=== PATIENT | male | born 1955 | race Caucasian/White ===

== ENCOUNTER 2016-10-01 08:14 | Day surgery (SDC) ==
[2016-09-24 10:05] LABS: MANUAL DIFF NEEDED? NO
[2016-09-24 10:09] LABS: EOS# 0.21 X1000 (0.0-0.7); EOS% 2.6 % (0.0-10.0); HEMATOCRIT 40.8 % (42.0-52.0); HEMOGLOBIN 13.6 g/dL (14.0-18.0); IMM GRAN# 0.02 X1000 (0.0-0.04); IMM GRAN% 0.2 % (0.0-0.5); LYMPH# 2.56 X1000 (1.2-3.4); LYMPH% 31.4 % (20.5-51.1); MCH 31.1 PG (27-31); MCHC 33.3 g/dL (33-37); MCV 93.2 FL (81-99); MONO# 1.19 X1000 (0.11-0.59); MONO% 14.6 % (1.7-9.3); MPV 8.5 FL (7.4-10.4); NEUT% 50.2 % (42.2-75.2); PLT 331 X1000 (130-400); RBC 4.38 XMIL (4.7-6.1)
[2016-09-24 10:31] LABS: CALCIUM 9.1 mg/dL (8.8-10.2); POTASSIUM 5.1 mmol/L (3.5-5.1)
--- NOTE | 2016-09-24 15:18 | EKG Report ---
Test Performed on : 09/24/2016 10:00:31 AM Test Reason : PAT Blood Pressure : / mmHG Vent. Rate : 087 BPM Atrial Rate : 087 BPM P-R Int : 124 ms QRS Dur : 102 ms QT Int : 354 ms P-R-T Axes : 018 -28 041 degrees QTc Int : 425 ms Sinus rhythm. with premature atrial complexes. Inferior infarct (cited on or before 07-OCT-2011) Abnormal ECG When compared with ECG of 07-OCT-2011 13:48, premature atrial complexes. are now present Questionable change in initial forces of Inferior leads Confirmed by Nicolas Fallon MD ([id number]) on 09/25/2016 9:21:30 PM
[2016-10-01] MEDS ORDERED: LR 1,000 ML ONE ×2 (08:27→11:44)
[2016-10-01] MEDS ORDERED: KEFZOL 1 GM/D5W 50 ML ONE (08:27)
[2016-10-01] MEDS ORDERED: VANCOMYCIN 1 GM/NS 250 ML ONE (08:41)
[2016-10-01] MEDS ORDERED: REGLAN ONE (09:07)
[2016-10-01] MEDS ORDERED: PEPCID ONE (09:07)
[2016-10-01] MEDS ORDERED: VALIUM ONE (09:07)
[2016-10-01] MEDS ORDERED: NAROPIN 0.5% ONE (09:25)
[2016-10-01] MEDS ORDERED: VERSED ONE (09:43)
[2016-10-01] MEDS ORDERED: FENTANYL ONE (11:31)
[2016-10-01] MEDS ORDERED: DIPRIVAN 1% ONE (11:31)
[2016-10-01] MEDS ORDERED: DILAUDID ONE (11:35)
[2016-10-01] MEDS ORDERED: ZOFRAN ONE (11:44)
[2016-10-01] MEDS ORDERED: XYLOCAINE-MPF 2% ONE (11:44)
[2016-10-01] MEDS ORDERED: OFIRMEV 1000 MG/ISOTONIC SOLN 100 ML ONE (11:44)
[2016-10-01] MEDS ORDERED: QUELICIN (DOSE) ONE (11:44)
[2016-10-01] MEDS ORDERED: NORCO-10 ONE (12:02)
--- NOTE | 2016-10-01 12:13 | OPERATIVE NOTE ---
PROCEDURE DATE: 10/01/2016 PREOPERATIVE DIAGNOSIS: Right rotator cuff tear and acromioclavicular joint arthritis. POSTOPERATIVE DIAGNOSES: 1. Right rotator cuff tear and acromioclavicular joint arthritis. 2. Chronic retracted irreparable rotator cuff tear. PROCEDURE: Arthroscopy of the right shoulder with subacromial decompression, distal clavicle resection, debridement of chronic irreparable rotator cuff tear. SURGEON: Fox Monaco MD DATA CONTROL CLERK SUPERVISOR: TRAVIS Gillette ANESTHESIA: General. IV FLUIDS: 1300 mL lactated Ringer's. ESTIMATED BLOOD LOSS: 25 mL. COMPLICATIONS: None. INDICATION: The patient is a pleasant 61-year-old male who is status post injury to his right shoulder. He has had pain and discomfort. MRI was obtained, revealed very large retracted rotator cuff tear. Recommendation to proceed arthroscopy with subacromial decompression, distal clavicle resection and attempted rotator cuff repair versus debridement if it is not amenable to repair. Risks and benefits of surgery explained including risks of anesthesia, , bleeding, infection, failure to relieve pain, postop stiffness, nerve injury, blood clots, and other imponderables. All questions were answered, the patient and family wished to proceed with surgery. DESCRIPTION OF PROCEDURE: The patient was taken to the operating room and placed supine on the operating table. Once adequate anesthesia was obtained, patient was placed in the left lateral decubitus position on a cisse bag with an axillary roll. The right shoulder subsequently prepped and draped in usual sterile fashion. Placed in 12 pounds longitudinal traction. A standard posterior incision was made with an 11 blade. A blunt tip trocar with overlying cannula was introduced. The arthroscope was introduced. Anterior portal was then made. Inspection of the glenohumeral joint revealed fraying in the anterior superior labrum, which was lightly debrided had an intact stable biceps tendon, had evidence of a chronic retracted rotator cuff with retraction medial to the labrum. No evidence of loose body in the inferior pouch. Attention was then turned to the subacromial space. Superior lateral incision made in standard fashion. A 90- degree ArthroCare wand was introduced to debride the undersurface of the acromion. A subacromial decompression was then conducted from the anterior lateral to anteromedial. After smoothly contouring the undersurface, adequate decompression was confirmed through the lateral portal using bony block technique. Attention turned to the AC joint. After initial debridement, there was evidence of AC joint arthritis. Distal clavicle resection then performed standard fashion with 1- 2 mm of the articular surface of the acromion. There appeared to be good resection confirmed through the anterior portal. Attention then turned to the bursal surface of the rotator cuff. Again, the remnant of the supraspinatus was retracted over the medial to the joint line. It appeared to be chronic, was not amenable to repair. Debridement of the rotator cuff was then conducted. After adequate debridement had been conducted, the arthroscope was removed. Nylon 3-0 was used to close the skin. Adaptic, sterile 4 x 4, ABD pad, and tape applied to the right shoulder, followed by shoulder immobilizer. All counts were correct. The patient tolerated the procedure well, was transferred to the recovery room in stable condition. [facility]
[2016-10-01 13:39] VITALS: BP 149/94
== END 2016-10-01 12:40 | disposition home or self-care (01) ==
LOC: OPS 08:14
PROVIDERS: ATTEND Orthopaedic Surgery Adult Reconstructive Orthopaedic Surgery
DX: M75.101 Unspecified rotator cuff tear or rupture of right shoulder, not specified as traumatic (principal); M19.011 Primary osteoarthritis, right shoulder; I10 Essential (primary) hypertension; I25.10 Atherosclerotic heart disease of native coronary artery without angina pectoris
CPT/HCPCS: 80048; 85025; 93005; 93010; J0131; J0330; J0690; J1170; J2250; J2405; J2795; J3010; J3370; J7120

== ENCOUNTER 2019-03-18 09:30 | Inpatient (IN) ==
[2019-03-18] MEDS ORDERED: NS 1,000 ML IV ONE ×2 (10:17→11:02)
[2019-03-18 11:09] LABS: BASO# 0.02 X1000 (0.0-0.2); BASO% 0.1 % (0.0-0.8); EOS# 0.01 X1000 (0.0-0.7); EOS% 0.1 % (0.0-10.0); HEMATOCRIT 42.3 % (42.0-52.0); HEMOGLOBIN 14.4 g/dL (14.0-18.0); IMM GRAN# 0.05 X1000 (0.0-0.04); IMM GRAN% 0.4 % (0.0-0.5); LYMPH# 1.18 X1000 (1.2-3.4); LYMPH% 8.3 % (20.5-51.1); MCH 29.9 PG (27-31); MCV 87.8 FL (81-99); MONO# 1.36 X1000 (0.11-0.59); MONO% 9.6 % (1.7-9.3); MPV 9.1 FL (7.4-10.4); NEUT% 81.5 % (42.2-75.2); PLT 613 X1000 (130-400); RBC 4.82 XMIL (4.7-6.1); RDW 13.6 % (11.5-14.5); WBC 14.22 X1000 (4.8-10.8)
[2019-03-18 11:24] LABS: INR 1.15; PROTIME 14.9 Seconds (11.0-16.0)
[2019-03-18 11:25] LABS: PTT 33.6 Seconds (22.3-41.8)
--- NOTE | 2019-03-18 11:33 | Diag Imaging Result Doc PS360 ---
EXAM: FLAT/UPRIGHT ABD/1 VIEW CHEST 03/18/2019 HISTORY: bowel obstruction TECHNIQUE: Flat and upright abdomen with AP chest COMMENT: There is stool present in the ascending colon. There is marked gaseous dilatation of multiple small bowel loops in the midabdomen. The stomach is not particularly distended. There is no evidence organomegaly or mass. The appearance of the chest has not changed significantly since 09/01/2018. IMPRESSION: Early small bowel obstruction. Constipation. Electronically signed by Luis Peace 03/18/2019 11:31 AM
[2019-03-18] MEDS ORDERED: ZOSYN 3.375 GM in NS 50 ML IV ONE (11:34)
[2019-03-18 11:58] LABS: ALB/GLOB RATIO 1.3; ALBUMIN 4.5 g/dL (3.5-5.0); CALCIUM 9.7 mg/dL (8.8-10.2); CREATININE 8.2 mg/dL (0.7-1.2); POTASSIUM 5.7 mmol/L (3.5-5.1); TOTAL BILIRUBIN 0.33 mg/dL (0.20-1.00); TOTAL PROTEIN 7.9 g/dL (6.3-8.3)
[2019-03-18 12:05] LABS: URINE SOURCE CATH
[2019-03-18 12:16] LABS: BILIRUBIN URINE SMALL (NEGATIVE); BLOOD URINE LARGE (NEGATIVE); COLOR ORANGE; GLUCOSE URINE NEGATIVE (NEGATIVE); KETONE URINE NEGATIVE (NEGATIVE); LEUKOCYTES URINE LARGE (NEGATIVE); NITRITE URINE NEGATIVE (NEGATIVE); PROTEIN URINE 100 mg/dL (NEGATIVE); TURBIDITY URINE TURBID (CLEAR); UR EPITHELIAL CELLS <10 /HPF (<10); URINE BACTERIA NEGATIVE /HPF; URINE RBC 20-40 /HPF (<10); URINE WBC TNTC /HPF (<10); UROBILINOGEN URINE NORMAL (NORMAL)
[2019-03-18 12:30] LABS: URINE CASTS NONE SEEN; URINE CRYSTALS NONE SEEN; URINE YEAST NONE SEEN
[2019-03-18 12:32] LABS: URINE SMALL ROUND CELLS RENAL PRESENT
[2019-03-18] MEDS ORDERED: ZOFRAN IV ONE (12:58)
--- NOTE | 2019-03-18 13:18 | Diag Imaging Result Doc PS360 ---
EXAM: CT ABDOMEN/PELVIS W/O CONTRAST HISTORY: abdomen distention TECHNIQUE: CT abdomen and pelvis without contrast COMPARISON: 08/22/2017 FINDINGS: There is thickening to the distal wall of the esophagus. The stomach is distended with fluid. There are multiple dilated small bowel loops. There is feculent material in the distal small bowel. Air and stool is found throughout the colon. Ileocolic anastomosis. No calcified gallstones or adjacent patient. Gallbladder is distended. No focal hepatic abnormality identified or small scattered pancreatic calcifications. No adjacent inflammation. No splenomegaly. Normal adrenal glands. There is a nonobstructing left lower pole renal stone. No hydronephrosis. Severe atherosclerosis. The distal aorta is dilated to 2.8 cm. There is a Regan catheter in the urinary bladder. There are bilateral fat filled inguinal hernias. The prostate has been removed. No pelvic mass. IMPRESSION: 1.Prominent ileus versus distal obstruction with feculent material the distal small bowel 2.Possible esophagitis 3.Chronic pancreatitis 4.Nonobstructing left renal stone 5.Severe atherosclerosis 6.Prostatectomy 7.Fat filled inguinal hernias This exam was performed using automated exposure control, adjustment of mA or kV according to patient size, and/or use of iterative reconstruction technique. Electronically signed by Daniel Yeh 03/18/2019 1:16 PM
--- NOTE | 2019-03-18 14:17 | EKG Report ---
Test Performed on : 03/18/2019 2:11:09 PM Test Reason : elevated troponin Blood Pressure : / mmHG Vent. Rate : 095 BPM Atrial Rate : 095 BPM P-R Int : 122 ms QRS Dur : 110 ms QT Int : 380 ms P-R-T Axes : 020 -66 073 degrees QTc Int : 477 ms Normal sinus rhythm. Left axis deviation Inferior infarct (cited on or before 23-AUG-2017) Abnormal ECG When compared with ECG of 24-AUG-2017 11:11, Nonspecific T wave abnormality now evident in Lateral leads Unconfirmed Result
--- NOTE | 2019-03-18 14:25 | Diag Imaging Result Doc PS360 ---
EXAM: CHEST/ABD TUBE PLACEMENT HISTORY: confirm ng placement TECHNIQUE: Chest abdomen single view COMPARISON: 11:28 AM FINDINGS: A nasogastric tube has been placed since the prior exam. This overlies the esophagus and upper stomach and appears to be in good position. Electronically signed by Daniel Yeh 03/18/2019 2:23 PM
[2019-03-18] MEDS ORDERED: SODIUM CHLORIDE 0.9% INJ SCH (16:48)
[2019-03-18] MEDS ORDERED: NS 1,000 ML IV SCH (16:48)
[2019-03-18] MEDS ORDERED: ZOFRAN IV PRN (16:48)
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
[2019-03-18] MEDS: NS 1,000 ML IV SCH ×2 (18:10→21:42)
[2019-03-18] MEDS: MORPHINE IV PRN (18:10)
[2019-03-18] MEDS: PROTONIX IV SCH (18:10)
[2019-03-18] MEDS ORDERED: BLISTEX MEDICATED BERRY LIP BALM TOP PRN (18:22)
--- NOTE | 2019-03-18 18:31 | CONSULTATION ---
DATE OF CONSULTATION: 03/18/2019 ATTENDING AND REFERRING PHYSICIAN: Dr. Maravilla. HISTORY OF PRESENT ILLNESS: This 63-year-old male has a history of prostate cancer. He underwent laparoscopic robot-assisted radical retropubic prostatectomy and bilateral pelvic lymph node dissection in 2013. He had some stress incontinence and is 1 week status post placement of an Advance male proximal bulbar urethral sling. The patient states he has not felt well since the surgery. He states he had some nausea and could not keep fluids or food on his stomach. He has not voided very much since the surgery, and had to have a Regan catheter placed 2 days ago. He states that relieved his bladder pain, but he continued with abdominal distention and nausea. He states his stomach became more protuberant since yesterday. The patient was seen in the emergency room where a CT of the abdomen revealed bowel obstruction, with the Regan catheter in good position in the bladder. PAST MEDICAL HISTORY: As noted in the HPI with: 1. Congestive heart failure. 2. Coronary artery disease. 3. Gastric ulcer. 4. Elevated cholesterol. 5. Peripheral vascular disease. 6. Allergic sinusitis. HOME MEDICATIONS: Include: 1. Bupropion. 2. Klonopin. 3. Diltiazem. 4. Livalo. 5. Losartan. 6. Plavix. 7. Omeprazole. PAST SURGICAL HISTORY: 1. Coronary artery stenting. 2. Partial colectomy. 3. Angioplasty. 4. Cataract excision. 5. As noted in the HPI. SOCIAL HISTORY: He smokes cigarettes and has social use of alcohol. REVIEW OF SYSTEMS: He is allergic to erythromycin and penicillin. He states that he is usually in good health. He states there are certain blood pressure medicines that cause his creatinine to elevate. He does not remember the name. He states he really has not had any urine output other than when the catheter was placed several days ago. He denies any chest pains or pulmonary problems. PHYSICAL EXAMINATION: General: A normally developed, well nourished, age apparent white male in mild distress with an NG tube in place. HEENT: Normal for age. Lungs: Clear. Cardiovascular: Regular rate and rhythm. Abdomen: Protuberant, tympanic. No bowel sounds noted. Diffuse tenderness with palpation, but no guarding or rebound. : Normal male. Both testes are down. Regan catheter in place with minimal urine in the drainage tube. There is no urine in the drainage bag. Extremities: No clubbing, cyanosis, or edema. Neuro: No focal deficits. LABORATORY EVALUATION: He has a white count of 14.22, hemoglobin 14.4, hematocrit of 42.3, and platelets are 613,000. Serum electrolytes have a sodium of 132, potassium 5.7, chloride 75, bicarb 25, BUN 88, creatinine 8.2. CT scan is as noted in the HPI. IMPRESSION: 1. Bowel obstruction. 2. Dehydration. 3. Acute renal failure. 4. One week postop placement of a midurethral stop sling with indwelling Regan catheter decompressing the bladder. 5. History of prostate cancer. RECOMMEND: 1. As has been done, consult General Surgery and Nephrology. 2. Keep Regan catheter in place. 3. Check urine cultures. Thank you for this consultation. cc: Kenji Gonzales MD
--- NOTE | 2019-03-18 18:50 | HISTORY AND PHYSICAL ---
CHIEF COMPLAINT: Abdominal pain, nausea, vomiting, and anuria. HISTORY OF PRESENT ILLNESS: This is a 63-year-old male with a history of CAD, history of multiple surgeries. He had a bladder sling operation apparently about on 03/11/[address] Dacosta. He had some issues post procedure with urinary retention. His states he had about 600 mL retained and had the catheter replaced. Over the last since he says which has been a week out he has not had poor p.o. intake. He has had nausea and vomiting. He reports no bowel movement in about 7 days. He came in for evaluation and was found to have a small bowel obstruction. He was in acute renal failure, and he is going to be admitted for multiple issues. He does have a history of pancreatitis,. but he is not currently drinking any alcohol . PAST MEDICAL HISTORY: 1. CAD status post PCI. Now PCI reportedly up to 6 stents placed, but the last one I think was in 2012. 2. Peptic ulcer disease. 3. Osteoarthritis.. 4. COPD . 5. Hypertension. 6. Prostate cancer status post prostatectomy, but that was remote. 7. Tobacco abuse. Unclear if he has true heart failure. PAST SURGICAL HISTORY: 1. PCI. 2. Prostatectomy. 3. Rotator cuff repair. 4. He has had colon surgery related to polyps. 5. Cataract surgery. 6. Left subclavian stent. SOCIAL HISTORY: He smokes a little bit, less than around 2 or 3 cigarettes a day or half a pack a day. No drinking at least since last admission. FAMILY HISTORY: Mother had colon cancer apparently at 36, and father had pancreatic cancer. REVIEW OF SYSTEMS: No weight loss reported, but he has had about looks like here at least a 10 pound weight loss in the last 8 days. No chest pain. No shortness of breath. Otherwise negative times a 10 point review. PHYSICAL EXAMINATION: VITAL SIGNS: Blood pressure is 116/75, heart rate 91, respiratory rate 17, temperature is 97.5 degrees, O2 sat is 98% on 2 L. GENERAL: A well-developed male in pretty significant distress who came in with nausea, vomiting. HEENT: Pupils are equal, round and reactive to light. Extraocular movements were intact. He had dry mucous membranes. NECK: Supple. CARDIOVASCULAR: Tachycardic but regular. PULMONARY: Decreased at the bases but no wheezing or rales. GASTROINTESTINAL: Soft, protuberant, tender, but no rebound, no guarding. Bowel sounds were not present. NEUROLOGICAL: Nonfocal exam. MUSCULOSKELETAL: 4-5/4 extremities. LABORATORY DATA: White count is 14, hemoglobin and hematocrit 14 and 42, platelets 613,000, potassium 5.7, BUN and creatinine are 88 and 8.2, with a troponin of 0.664. White blood cells too numerous to count. He does have some renal tubules present I believe. ASSESSMENT: A 63-year-old male presenting with a small bowel obstruction and essentially an acute kidney injury, dehydration. 1. Small-bowel obstruction. We will continue NG tube. It is unclear if this is also or perhaps an ileus, we have consulted Dr. Mac. He has got an NG in place with persistent output. We will repeat his plain films tomorrow and follow. This just may be a post op ileus and will need some time to resolve, but he has had numerous surgeries in the past which will predispose him to small bowel obstruction. 2. Acute kidney injury. We will continue IV fluids. Check urine electrolytes. Check renal ultrasound. Dr. Agee has been consulted, hopefully this is all reactive so we will continue to follow. 3. Hyperkalemia likely related to small bowel renal failure. 4. History of chronic pancreatitis. We are aware. 5. Decreased urine output, urinary retention currently though Regan is in place and there is no urine output. It does not look like there is any evidence of obstructive uropathy. I will let Dr. Dacosta know he is here and follow along, but it does not look like there is anything with obstruction at this point. 6. Elevated troponin which was actually reactive. His EKG to me does not show anything acute. We will get another level. We will get an echo. If persistently elevated we may consider Cardiology consult. His EKG is nonspecific at this time. DISPOSITION: Pending clinical status. cc: Dr. Elie Maravilla MD
--- NOTE | 2019-03-18 19:36 | GENERAL SURGERY CONSULTATION ---
DATE: 03/18/2019 HISTORY OF PRESENT ILLNESS: A 63-year-old gentleman patient of Dr. Lake who about a 1-2 weeks ago had a midurethral sling. He has COPD, Hypertension, and peripheral vascular disease. Since that time he has not felt very well. He has had some abdominal distention, lack of flatus and bowel movements, had urinary retention. He has had a Regan catheter replaced and has been in place really pretty much since then. He has had persistent nausea and vomiting, worsening over the last couple of days. He came to the ER where he was found to have acute renal failure with creatinine up to 8.2. His potassium was elevated. His troponins were elevated, and his white count was high. He appeared very dehydrated. CT scan was concerning for bowel obstruction. SURGICAL HISTORY: He has had a prostatectomy. He has had a right colectomy presumably for a benign polyp laparoscopically, left subclavian stent. No coronary stents. MEDICAL HISTORY: Prostate cancer, colon polyp, tobacco use, COPD, hypertension, peptic ulcer disease and osteoarthritis. SOCIAL HISTORY: He does smoke, less now than used to, has not had anything to drink since his last admission. FAMILY HISTORY: Reviewed and noncontributory. REVIEW OF SYSTEMS: Ten-point review os systems negative other than HPI PHYSICAL EXAMINATION: Vital signs: He is afebrile. Heart rate was initially elevated and was hypotensive but is better now. Pulse 91, blood pressure 116/75, oxygen saturation is 98% on 2 L. General: He is a chronically ill-appearing gentleman in no acute distress. HEENT: He has a nasogastric tube in place. No cervical mass. Cardiovascular: Normal rate. Pulmonary: No increased work of breathing. Abdomen: Soft, nontender, nondistended. Integument: Warm and dry. Genitourinary: Regan catheter is noted to be in place with no urine output. Peripheral vascular: No lower extremity edema. Psychiatric: Appropriate affect. Neurologic: No gross deficits. LABORATORY DATA: White count is 14, hematocrit 42, platelets 613,000, creatinine is 8.2, potassium 5.7, glucose 166. Troponin is 0.615. Urinalysis does show large leukocytes. IMAGING: I reviewed a CT scan, shows no free air, no free fluid. There is an ileus versus distal bowel obstruction, and fat containing inguinal hernia is not a source of obstruction. He does have a history of chronic pancreatitis. ASSESSMENT AND PLAN: A 63-year-old gentleman with ileus versus bowel obstruction. Apparently has passed some gas. NG tube is in place. He is putting out old gastric-appearing contents, and a Regan catheter had been placed. Dr. Agee of the urology service has been engaged. Would recommend continued hydration, correction of electrolyte abnormalities and NG tube decompression. We will follow along but would be high risk for an abdominal operation right now. I do not feel as though this is indicated. Most likely this is more of an ileus type picture, but we will follow. cc: Gale Mac MD MTDD
[2019-03-18 23:11] LABS: UR PROT RANDOM 151.5 mg/dL
[2019-03-18] MEDS ORDERED: CHLORASEPTIC SPRAY MT PRN (23:28)
[2019-03-19] MEDS: MORPHINE IV PRN ×3 (00:01→11:18)
[2019-03-19] MEDS: NS 1,000 ML IV SCH ×3 (04:49→18:10)
--- NOTE | 2019-03-19 07:42 | EKG Report ---
Test Performed on : 03/19/2019 06:25:53 AM Test Reason : cp Blood Pressure : / mmHG Vent. Rate : 086 BPM Atrial Rate : 086 BPM P-R Int : 134 ms QRS Dur : 116 ms QT Int : 384 ms P-R-T Axes : 037 -43 066 degrees QTc Int : 459 ms Normal sinus rhythm. Left axis deviation Inferior infarct (cited on or before 23-AUG-2017) T wave abnormality, consider anterior ischemia Abnormal ECG When compared with ECG of 18-MAR-2019 14:11, (Unconfirmed) T wave inversion now evident in Anterior leads Nonspecific T wave abnormality, improved in Lateral leads Confirmed by Alberta Riley MD ([id number]) on 03/19/2019 4:28:32 PM
[2019-03-19 08:44] LABS: BASO# 0.01 X1000 (0.0-0.2); BASO% 0.1 % (0.0-0.8); EOS# 0.01 X1000 (0.0-0.7); EOS% 0.1 % (0.0-10.0); HEMATOCRIT 36.1 % (42.0-52.0); HEMOGLOBIN 12.1 g/dL (14.0-18.0); IMM GRAN# 0.04 X1000 (0.0-0.04); IMM GRAN% 0.3 % (0.0-0.5); LYMPH# 1.34 X1000 (1.2-3.4); LYMPH% 10.6 % (20.5-51.1); MCH 30.5 PG (27-31); MCHC 33.5 g/dL (33-37); MCV 90.9 FL (81-99); MONO% 11.8 % (1.7-9.3); MPV 9.2 FL (7.4-10.4); NEUT% 77.1 % (42.2-75.2); PLT 441 X1000 (130-400); RBC 3.97 XMIL (4.7-6.1); RDW 13.6 % (11.5-14.5)
[2019-03-19 09:07] LABS: ALBUMIN 3.1 g/dL (3.5-5.0); CALCIUM 8.2 mg/dL (8.8-10.2); CREATININE 7.3 mg/dL (0.7-1.2); MAGNESIUM 2.8 mg/dL (1.5-2.7); POTASSIUM 3.5 mmol/L (3.5-5.1); TOTAL BILIRUBIN 0.22 mg/dL (0.20-1.00); TOTAL PROTEIN 6.3 g/dL (6.3-8.3)
--- NOTE | 2019-03-19 11:17 | GENERAL SURGERY PROGRESS NOTE ---
DATE: 03/19/2019 SUBJECTIVE: He says he is passing gas. His abdomen remains distended. NG tube is in place with thick, feculent-appearing output, but not much volume. OBJECTIVE: Vital signs: Hemodynamically stable. General: He is alert. Cardiovascular: Normal rate. HEENT: NG tube is in place. Abdomen: Distended, but soft, nontender. Genitourinary: He has a Regan in place with increasing urine output. DIAGNOSTIC STUDIES: Creatinine is down to 7.3. His potassium is 3.5. White count is 12. ASSESSMENT AND PLAN: A 63-year-old gentleman status post mid urethral sling. He presents now with apparent ileus versus bowel obstruction. I do think this is more of an ileus-type picture. He is distended. I would continue hydration, electrolyte correction, and NG tube decompression. Dr. Benitez will follow-up over the weekend, but suspect over the next 24-48 hours, we can get the NG tube out. It is okay for him to have ice chips and sips, but I have encouraged him to continue the low volume. cc: Gale Mac MD [facility]
--- NOTE | 2019-03-19 13:07 | Diag Imaging Result Doc PS360 ---
ABDOMEN FLAT/UPRIGHT - 03/19/2019 INDICATION: sbo COMPARISON: 03/18/2019 FINDINGS: Stable nasogastric tube in the stomach. Stable extensive gas dilated loops of small bowel indicating a distal small bowel obstruction. These measure up to 4.2 cm. Very little gas or stool in the colon. No free air. IMPRESSION: Distal mechanical small bowel obstruction. Electronically signed by Russ Franco 03/19/2019 1:05 PM
--- NOTE | 2019-03-19 13:07 | Diag Imaging Result Doc PS360 ---
US RENAL 2 (RETROPER) COMPLETE - 03/19/2019 INDICATION: torito TECHNIQUE: COMPARISON: CT from yesterday FINDINGS: The kidneys and urinary bladder are normal. Urinary bladder is mostly collapsed. There is clear urine in the urinary bladder. The right kidney measures 9.1 x 4.2 x 2.9 cm. The left kidney measures 10.1 x 4.8 x 5.5 cm. IMPRESSION: Negative exam. Electronically signed by Russ Franco 03/19/2019 1:04 PM
--- NOTE | 2019-03-19 14:41 | NEPHROLOGY CONSULTATION ---
DATE: 03/19/2019 REASON FOR CONSULTATION: Acute kidney injury. HISTORY OF PRESENT ILLNESS: Mr. Rg is a 63-year-old man with a history of bladder sling procedure. He has had low urine output, nausea, anorexia, vomiting,minimal bowel movements. He was re-evaluated and found to have an ileus and is admitted to the hospital. In that context he had acute kidney injury with BUN 88 creatinine 8.2. HOME MEDICATIONS: Include losartan. PAST MEDICAL HISTORY: Hypertension, hyperlipidemia, COPD, coronary artery disease, peptic ulcer disease, history of prostate cancer. ALLERGIES: Multiple, as listed. SOCIAL HISTORY: He is . Lives with his who is currently at the bedside. Ongoing tobacco use. FAMILY HISTORY: Otherwise noncontributory. REVIEW OF SYSTEMS: Otherwise noncontributory. PHYSICAL EXAMINATION: Vital Signs: Blood pressure 109/83, heart rate 101, respirations 17, afebrile. General: No acute distress. Skin: Warm and dry. Neck: Neck veins are not distended. HEENT: Oropharynx is clear. Normal tongue. Normal teeth. Cardiovascular: PMI nondisplaced. Regular rate and rhythm without murmurs, rubs, or gallops. Lungs: Have equal breath sounds. No crackles or wheezes. Abdomen: Soft, nontender. Bowel sounds present. No organomegaly, masses, bruits. Extremities: Have no edema, clubbing or cyanosis. IMPRESSION: 1. Acute kidney injury. Likely intravascular volume depletion in the context of poor glomerular autoregulation secondary to angiotensin receptor mychal therapy. He certainly has an abnormal urine consistent with an infection though his urine culture has been negative thus far. 2. Imaging disclosed kidneys that are marginally small with no evidence of obstruction and his bladder was collapsed. 3. He has increased urine output with volume resuscitation. 4. He has no acute indications for dialysis and his potassium is in target, bicarbonate in target. No volume overload. 5. I agree with the care as it is being delivered. No changes at this time. We will follow with you. cc: Elmer Agee MD
[2019-03-19] MEDS ORDERED: FLEET MINERAL OIL ENEMA PR ONE (14:48)
[2019-03-19] MEDS ORDERED: ATIVAN IV PRN (14:50)
--- NOTE | 2019-03-19 15:12 | PROGRESS NOTE ---
DATE: 03/19/2019 SUBJECTIVE: Patient has no major complaints. OBJECTIVE: Vital Signs: Blood pressure is 109/83, heart rate 101, respiratory rate 17, temperature was 97.9 degrees, 92% on 3 L. Cardiovascular: Regular rate and rhythm. Pulmonary: Bilateral breath sounds clear to auscultation. Gastrointestinal: Soft, nontender, nondistended. Bowel sounds are positive. DIAGNOSTIC STUDIES: White count 12, hemoglobin 12, hematocrit 36, platelets 441. BUN 98, creatinine 7.3. Magnesium of 2.8. His most recent troponin was 0.615, which was a decrease. CK was normal. Echo is pending. PROBLEM LIST: 1. Small bowel obstruction versus ileus. He still has decent output from the NG tube, so I will keep that in place. We will continue some bowel treatments because I think he is constipated, despite the fact that he says he has not eaten and things of that nature, so we will work on bowel stimulation from below. 2. Acute kidney injury, likely due to dehydration, which may have progressed to acute tubular necrosis. His renal ultrasound is unremarkable. His urine electrolytes are consistent with prerenal causes most likely. His urine sodium is 22, which I think that makes his FENa calculate to less than 1%. 3. Chronic pancreatitis. He says his pain is not under control so we will change his pain medications and follow. 4. Coronary artery disease. He does have some mild elevation in his troponins. I am waiting on a repeat echocardiogram. I think this is secondary to his renal failure. There are no ischemic changes. I may get a Cardiology opinion. 5. Recent bladder sling. He seems to be doing okay from that standpoint. There is no evidence of obstructive uropathy. We will continue fluids and follow closely. cc: Weston Maravilla MD [facility]
[2019-03-19] MEDS: DILAUDID IV PRN ×2 (16:51→22:03)
[2019-03-19] MEDS: PROTONIX IV SCH (17:05)
[2019-03-19] MEDS: DULCOLAX PR SCH (20:03)
[2019-03-20] MEDS: NS 1,000 ML IV SCH ×3 (01:03→12:35)
[2019-03-20] MEDS: DILAUDID IV PRN ×3 (03:09→19:04)
[2019-03-20 07:10] LABS: BASO# 0.01 X1000 (0.0-0.2); BASO% 0.1 % (0.0-0.8); EOS# 0.02 X1000 (0.0-0.7); EOS% 0.2 % (0.0-10.0); HEMATOCRIT 37.9 % (42.0-52.0); HEMOGLOBIN 12.1 g/dL (14.0-18.0); IMM GRAN# 0.06 X1000 (0.0-0.04); IMM GRAN% 0.5 % (0.0-0.5); LYMPH# 1.31 X1000 (1.2-3.4); LYMPH% 10.4 % (20.5-51.1); MCHC 31.9 g/dL (33-37); MCV 93.8 FL (81-99); MONO# 1.74 X1000 (0.11-0.59); MONO% 13.8 % (1.7-9.3); MPV 9.2 FL (7.4-10.4); NEUT# 9.45 X1000 (1.4-6.5); PLT 437 X1000 (130-400); RBC 4.04 XMIL (4.7-6.1); RDW 13.5 % (11.5-14.5); WBC 12.59 X1000 (4.8-10.8)
[2019-03-20 07:35] LABS: CALCIUM 8.4 mg/dL (8.8-10.2); CREATININE 4.3 mg/dL (0.7-1.2); MAGNESIUM 2.6 mg/dL (1.5-2.7); PHOSPHORUS 4.9 mg/dL (2.7-4.5); POTASSIUM 3.6 mmol/L (3.5-5.1)
[2019-03-20] MEDS: DULCOLAX PR SCH ×2 (09:20→20:08)
[2019-03-20] MEDS: WELLBUTRIN XL PO SCH (11:25)
[2019-03-20] MEDS: KLONOPIN PO SCH ×2 (11:25→20:08)
--- NOTE | 2019-03-20 14:32 | GENERAL SURGERY PROGRESS NOTE ---
DATE: 03/20/2019 SUBJECTIVE: The patient says he feels better. He denies significant abdominal pain. His abdominal distention has improved according to him and his . No nausea or vomiting. He has passed gas several times. He is eating ice continuously. OBJECTIVE: Afebrile. Pulse 90s to low 100s last night and this morning. Blood pressure is stable. NG tube output 900 mL over the last 24 hours. It is blood-tinged. GI: Soft, somewhat protuberant and tympanic but minimally tender and he does have bowel sounds. LABORATORY: White blood cell count 12.5, hemoglobin 12, hematocrit 37.9. Electrolytes reviewed and are unremarkable. The BUN and creatinine are improving at 87 and 4.3 respectively. Phosphorus, magnesium, and potassium are all unremarkable. ASSESSMENT AND PLAN: 63-year-old male with apparent ileus, dehydration and acute kidney injury, status post urethral sling a week and a half ago. I do not think he has a mechanical obstruction. I am going to clamp his NG tube this morning and give him a trial for 6 hours. If he tolerates this, will remove the NG tube. I think he likely has gastritis. He is getting Protonix. His hemoglobin and hematocrit are minimally changed since admission. cc: Adi Benitez MD
[2019-03-20] MEDS ORDERED: NS 1,000 ML IV SCH (15:05)
[2019-03-20] MEDS ORDERED: ATIVAN IV PRN (15:19)
[2019-03-20] MEDS: CLINIMIX E 4.25%-5% SOLUTION 1,000 ML IV SCH (15:46)
--- NOTE | 2019-03-20 15:46 | NEPHROLOGY PROGRESS NOTE ---
DATE: 03/20/2019 SUBJECTIVE: He has his NG tube clamped and is on clear liquids. He is hungry and asking for food. No shortness of breath. OBJECTIVE: Vital Signs: Blood pressure 121/79, heart rate 98, respirations 17, afebrile. General: No acute distress. Skin: Warm and dry. Neck: Neck veins are not appreciated. Heart: Regular. Lungs: Equal. No crackles. Abdomen: Soft, nontender. Diminished bowel sounds. Extremities: With no edema, clubbing or cyanosis. IMPRESSION: Acute kidney injury. Progressive improvement with good urine output and falling creatinine. Electrolytes/acid base/volume status in target. Continue IV fluids. No changes. cc: Elmer Agee MD
[2019-03-20] MEDS: PROTONIX IV SCH (15:51)
--- NOTE | 2019-03-20 16:30 | PROGRESS NOTE ---
DATE: 03/20/2019 SUBJECTIVE: Patient has no major complaints. OBJECTIVE: Blood pressure 121/79, heart rate of 98, respiratory rate of 17, temperature 98.5 degrees, 96% on 2 L.Cardiovascular: Regular rate and rhythm. Pulmonary: Bilateral breath sounds. Clear to auscultation. GI: Was soft, distended. No bowel sounds. LABORATORY DATA: White count is 12, hemoglobin and hematocrit 12 and 37, platelets 437,000, creatinine is down to 4.3 which is a big drop, phos is 4.9 which is high. PROBLEM LIST: 1. Small bowel obstruction versus ileus. He has had over 2 L out since this morning so I really do not think we are going to be able take the NG out. I realize this may not be a true small bowel obstruction but his residuals is very high. The patient is upset because he is not eating and he thinks we are starving him to because he is not eating, he is not constipated because he is not eating and therefore that is why he would not be constipated. He did have a stool throughout the bowel on his CAT scan. It looks like he may have had 1 bowel movement yesterday but he says he only just passes the suppositories. Anyways he is just unpleasant and just unhappy about the situation which is understandable. 2. Acute kidney injury. He does seem to be prerenal. Will continue IV fluids. I switched him to Clinimix since he is wanting to eat. 3. Chronic pancreatitis. We will increase his pain medicine. He says they are still not working. His oral medicines I am not really sure how well they are being absorbed since he put over 2 L in there but he is happy that Dr. Benitez has restarted those. 4. Elevated troponin in the setting of acute renal failure stable. I am still waiting on his repeat films. DISPOSITION: Pending his clinical status. I think he is probably close to being able to go on the floor. cc: Weston Maravilla MD
[2019-03-21] MEDS: DILAUDID IV PRN ×5 (00:16→20:42)
[2019-03-21] MEDS: CLINIMIX E 4.25%-5% SOLUTION 1,000 ML IV SCH ×3 (00:35→20:42)
[2019-03-21 07:11] LABS: BASO# 0.03 X1000 (0.0-0.2); BASO% 0.2 % (0.0-0.8); EOS# 0.05 X1000 (0.0-0.7); EOS% 0.4 % (0.0-10.0); HEMOGLOBIN 12.1 g/dL (14.0-18.0); IMM GRAN# 0.08 X1000 (0.0-0.04); IMM GRAN% 0.6 % (0.0-0.5); LYMPH# 1.41 X1000 (1.2-3.4); MCHC 31.8 g/dL (33-37); MCV 94.3 FL (81-99); MONO# 1.46 X1000 (0.11-0.59); MONO% 11.4 % (1.7-9.3); MPV 8.9 FL (7.4-10.4); NEUT# 9.77 X1000 (1.4-6.5); NEUT% 76.4 % (42.2-75.2); PLT 399 X1000 (130-400); RBC 4.03 XMIL (4.7-6.1); RDW 13.2 % (11.5-14.5)
[2019-03-21 07:29] LABS: CALCIUM 8.8 mg/dL (8.8-10.2); CREATININE 1.9 mg/dL (0.7-1.2); MAGNESIUM 2.1 mg/dL (1.5-2.7)
[2019-03-21] MEDS: KLONOPIN PO SCH ×2 (09:05→20:33)
[2019-03-21] MEDS: WELLBUTRIN XL PO SCH (09:05)
[2019-03-21] MEDS: DULCOLAX PR SCH ×2 (09:05→20:34)
--- NOTE | 2019-03-21 09:13 | Diag Imaging Result Doc PS360 ---
ABDOMEN FLAT/UPRIGHT - 03/21/2019 INDICATION: pain COMPARISON: 03/19/2019 FINDINGS: The nasogastric tube is no longer present. There are stable severely gaseous distended loops of small bowel diffusely throughout the abdomen compatible with high-grade distal small bowel obstruction. IMPRESSION: Nasogastric tube no longer present. Severe small bowel obstruction. Electronically signed by Russ Franco 03/21/2019 9:11 AM
[2019-03-21] MEDS ORDERED: FLEET ENEMA PR ONE (09:45)
--- NOTE | 2019-03-21 10:14 | GENERAL SURGERY PROGRESS NOTE ---
DATE: 03/21/2019 SUBJECTIVE: The patient denies abdominal pain or nausea. He reports some passage of flatus. His NG tube was removed yesterday after a low residual. OBJECTIVE: Vital signs: He is afebrile. Vital signs are stable. Urine output a little over 2 L. He also had 2 recorded bowel movements over the last 24 hours. General: He is awake, alert, oriented x3. No acute distress. Respiratory: No work of breathing. GI: Soft, moderately distended and tympanic, but nontender, and he does have bowel sounds. LABORATORY: White blood cell count 12.8, hemoglobin 12.1, hematocrit 38. Electrolytes reviewed and notable for improving BUN and creatinine, now down to 62 and 1.9. IMAGING: An abdominal x-ray today shows severely gaseous distended loops of small bowel diffusely throughout the abdomen, compatible with small bowel obstruction. ASSESSMENT AND PLAN: A 63-year-old male with apparent small bowel obstruction versus ileus after urethral sling procedure over a week ago. Symptomatically, he reports feeling better. He denies significant abdominal pain, nausea, or vomiting. He reports flatus and bowel movements and tolerating clear liquids yesterday. I will cautiously advance him to a full liquid diet but also add mineral oil and a Fleet's enema to try to encourage more bowel function. cc: Adi Benitez MD
[2019-03-21] MEDS: MILK OF MAGNESIA PO SCH ×2 (12:39→20:34)
[2019-03-21] MEDS ORDERED: NORCO-7.5 PO PRN (14:54)
[2019-03-21] MEDS ORDERED: RELISTOR SUBQ ONE (14:56)
--- NOTE | 2019-03-21 15:14 | PROGRESS NOTE ---
DATE: 03/21/2019 SUBJECTIVE: Patient has no major complaints. OBJECTIVE: Blood pressure is 144/93, heart rate of 101, respiratory rate of 18, temperature was 98.6 degrees.Cardiovascular: Regular rate and rhythm. Pulmonary: Bilateral breath sounds. Clear to auscultation. GI: Was soft, nontender, nondistended. Bowel sounds are positive. Extremities: No clubbing or cyanosis. Lymphatic: No peripheral edema. Neurological: Nonfocal. LABORATORY DATA: White count is 12, hemoglobin and hematocrit 12 and 38, platelets of 399,000. Creatinine is down to 1.9 with a BUN of 62. PROBLEM LIST: 1. Small bowel obstruction versus ileus. Nasogastric is out. He seems obviously in better spirits now that he can he eat. I agree with Dr. Benitez he needs to be I think flushed out before we necessarily let him go. He is really chafing at the bit to go home but I think he was given an enema, may be a benefit give him some Relistor, maybe some Movantik. 2. Acute kidney injury that seems to be better. We will continue IV medications and follow. 3. I think if he is stabilizing anticipate discharge soon possibly within the next 1 to 2 days. Encourage ambulation and see how he does. 4. Hypertension. We will resume his regular medicines and follow. cc: Weston Maravilla MD
[2019-03-21] MEDS: CARDIZEM CD PO SCH (15:40)
[2019-03-21] MEDS: APRESOLINE PO SCH (17:15)
[2019-03-21] MEDS: PRILOSEC PO SCH (20:33)
[2019-03-22] MEDS: DILAUDID IV PRN ×3 (01:47→06:38)
[2019-03-22] MEDS: CLINIMIX E 4.25%-5% SOLUTION 1,000 ML IV SCH (06:29)
[2019-03-22] MEDS: PRILOSEC PO SCH (06:29)
[2019-03-22] MEDS: APRESOLINE PO SCH ×2 (08:25→12:32)
[2019-03-22] MEDS: WELLBUTRIN XL PO SCH (08:25)
[2019-03-22] MEDS: KLONOPIN PO SCH (08:25)
[2019-03-22] MEDS: CARDIZEM CD PO SCH (08:25)
[2019-03-22] MEDS: MILK OF MAGNESIA PO SCH (08:25)
[2019-03-22] MEDS: DULCOLAX PR SCH (08:28)
[2019-03-22] MEDS ORDERED: LIVALO PO SCH (09:00)
--- NOTE | 2019-03-22 09:53 | NEPHROLOGY PROGRESS NOTE ---
DATE: 03/22/2019 TIME SEEN: 0705. SUBJECTIVE: Mr. Rg is resting quietly in bed. States that he is just uncomfortable today. Denies chest pain or increased work of breathing. OBJECTIVE: Vital Signs: Temperature 97.9 degrees, blood pressure 102/72, heart rate 80, respirations 18, he is on 2 L nasal cannula. Last recorded saturation 95%. He has had 5367 in, 1350 out to Regan catheter. He is 6.4 L positive since admission. Labs are still currently pending. His last potassium was 4, last BUN 62, creatinine 1.9. Hemoglobin 12.1. We are still waiting on labs. Physical Examination: General: This is a 63-year-old, white male resting quietly in bed. He appears chronically ill. No acute distress. Skin is warm and dry. HEENT: Normocephalic and atraumatic. Conjunctivae are pale pink. JES. Mucous membranes are dry. Neck: Supple. Trachea midline. He has positive JVD at the 6 cm federico. Cardiovascular: He has regular rate and rhythm. No murmur or gallop appreciated. Lungs: Clear to auscultation bilaterally. Equal excursion, on O2. Abdomen: Soft, nontender. Positive bowel sounds. Genitourinary: Not inspected. Regan catheter is in place with adequate urine out. Extremities: Have no edema. No clubbing or cyanosis. ASSESSMENT AND PLAN: 1. Acute kidney injury. BUN and creatinine have been stable. Labs are currently pending this morning. Adequate urine output. We will continue to monitor. No indications for dialysis intervention. 2. Electrolytes, acid-base balance, and anemia. These are all in target. 3. Small bowel obstruction. Patient has his nasogastric tube currently out. He remains on Clinimix 100 mg. he appears to be on a liquid diet. Followed by surgery and the primary care team. I would like to thank you for allowing us to follow with this patient. Dictated by MARGARITA Contreras for Elmer Agee MD Face to face encounter, data reviewed, discussed with Margaret Tobin on 03/22/19. I agree with the above assessment and plan of care. cc: MARGARITA Contreras MD [facility]
[2019-03-22 10:12] LABS: ALBUMIN 3.1 g/dL (3.5-5.0); CALCIUM 8.6 mg/dL (8.8-10.2); CREATININE 1.3 mg/dL (0.7-1.2); POTASSIUM 4.1 mmol/L (3.5-5.1)
--- NOTE | 2019-03-22 11:12 | Diag Imaging Result Doc PS360 ---
EXAM: ABDOMEN FLAT/UPRIGHT 03/22/2019 HISTORY: sbo TECHNIQUE: Flat and upright abdomen COMMENT: There are multiple air-fluid levels in the small bowel with some dilatation of small bowel loops. This is somewhat improved since the previous study. There is some gas in the stomach which is not distended. There is less gas and stool in the ascending colon than on the previous study of 03/21/2019. IMPRESSION: Somewhat improved small bowel obstruction. Electronically signed by Luis Peace 03/22/2019 11:10 AM
[2019-03-22 11:44] VITALS: BP 102/72
[2019-03-22] MEDS ORDERED: RELISTOR SUBQ ONE (12:04)
[2019-03-22] MEDS ORDERED: MIRALAX PO SCH (12:15)
--- NOTE | 2019-03-22 12:34 | PROGRESS NOTE ---
DATE: 03/22/2019 Most likely, we will discharge today. SUBJECTIVE: The patient has no major complaints. OBJECTIVE: Blood pressure is 102/72, heart rate of 92, respiratory rate is 17, temperature 98.1 degrees, 95% on 2 L. Cardiovascular: Regular rate and rhythm. Pulmonary: Bilateral breath sounds clear to auscultation. GI: Soft, nontender, nondistended. Bowel sounds were positive. His bowel is still distended but he definitely has bowel sounds, somewhat rigorous. BUN and creatinine are down to 51 and 1.3. PROBLEM LIST: 1. Acute renal failure. He is much improved. We will continue some fluid and follow. 2. Small bowel obstruction. I believe that is pretty much resolved. We will advance his diet. His x-ray looks improved. He will need to be on a bowel regimen though and continue to follow closely, but I anticipate after surgical evaluation, he could go home. cc: Weston Maravilla MD
--- NOTE | 2019-03-22 16:49 | GENERAL SURGERY PROGRESS NOTE ---
DATE: 03/22/2019 SUBJECTIVE: Doing well. Tolerating a diet. Having bowel function. No abdominal pain. No fevers. No tachycardia. OBJECTIVE: Vital signs: O2 saturation is 95 on 2 L. General: He is alert. Abdomen: Only mildly distended, but soft and nontender. Integument: Warm, dry. LABORATORY: White count was down to 12 yesterday, hematocrit 28. Creatinine is down 1.3. Electrolytes are much better. ASSESSMENT AND PLAN: This is a 63-year-old gentleman admitted with ileus following mid urethral sling. This seems to have resolved. We will defer further disposition to the hospitalist and urology service. I would like to see him in 2 weeks in my office. cc: Gale Mac MD
[2019-03-22] MEDS ORDERED: LACTULOSE PO SCH (21:00)
--- NOTE | 2019-03-22 21:44 | DISCHARGE SUMMARY ---
ADMISSION DATE: 03/18/2019 DISCHARGE DATE: 03/22/2019 DISCHARGE DIAGNOSES: 1. Acute renal failure due to dehydration. 2. Small bowel obstruction, severe ileus associated with recent surgery and probably pain medication. 3. History of acute on chronic pancreatitis. 4. Hyperkalemia. Elevated troponin in the setting of renal failure. PROCEDURES: None. CONSULTATIONS: Dr. Mac, Surgery, Dr. Gonzales, Urology, Dr. Agee, Nephrology. Briefly this is a 63-year-old male who had a bladder sling operation on the and has had issues with urinary retention. Subsequently, he developed nausea, vomiting, abdominal pain, no bowel movement for 7 days. He came in for evaluation. He was found to have a creatinine of 8.2 and a partial small bowel obstruction. NG was placed. Dr. Gonzales was consulted which appeared to be stable and did not feel there was active urological issues. His bladder sling seemed okay, he had no obstructive uropathy. His kidney function improved with IV fluids. Dr. Agee felt this was likely a combination of things. Renal ultrasound was unremarkable and felt to be intravascular volume depletion in the context of poor glomerular autoregulation due to his ARB but with hydration his creatinine came down 7.3, 4.3, time of discharge is 1.3, BUN is still elevated 51. NG was cycled and taken out. His diet was advanced. He tolerated a soft diet prior to discharge. His abdominal film showed improved bowel obstruction. He was passing flatus and bowel movements the day before and the day of discharge and he was felt stable for discharge. Unfortunately, he qualified for home O2 and we set that up prior to discharge. DISCHARGE MEDICATIONS: Benadryl, hydralazine 75 t.i.d., Cardizem CD 360, I would reevaluate that just because that can cause constipation, Klonopin 0.5 b.i.d., Cozaar 100 daily will be resumed once Dr. So feels kidney function is stabilized, eplerenone 25 also will be held until followup with his PCP, pitavastatin 1 daily, Prilosec 20 b.i.d., Wellbutrin XL 150 daily, lactulose will be given daily until he has daily bowel movements, MiraLAX 17 daily, [place] p.r.n. DISCHARGE CONDITION: Stable. He will need to follow up with Dr. So. Repeat basic in 1 week, reassess instituting losartan and eplerenone and patient is stable for discharge. TIME SPENT: 32 minutes. Return for abdominal pain or no bowel movement for 48 hours. cc: MD Dr. Estefania Rojas
== END 2019-03-22 17:10 | disposition home or self-care (01) | DRG 683 ==
LOC: ED 09:30 → 2N 15:54
PROVIDERS: ATTEND Internal Medicine

== ENCOUNTER 2019-04-04 10:14 | Inpatient (IN) ==
[2019-04-04] MEDS ORDERED: NS 1,000 ML IV PRN (11:13)
--- NOTE | 2019-04-04 11:14 | PROVIDER DOCUMENTATION ---
HPI-Neurological Disorder - General Chief Complaint: Stroke-Like Symptoms Stated Complaint: LEFT SIDE WEAKNESS Time Seen by Provider: 04/04/19 10:26 Source: patient, family Allergies/Adverse Reactions: Patient Allergies Allergy/AdvReac Type Severity Reaction Status Date / Time cephalexin monohydrate * Allergy SWELLING Verified 04/04/19 11:29 [From Keflex] oxycodone HCl * Allergy ITCHING Verified 04/04/19 11:29 [From Percodan] oxycodone terephthalate * Allergy ITCHING Verified 04/04/19 11:29 [From Percodan] Penicillins Allergy Unknown Verified 04/04/19 11:29 erythromycin base AdvReac ABDOMINAL Verified 04/04/19 11:29 [Erythromycin Base] PAIN Home Medications: Home Medication List Medication Instructions Recorded Confirmed Last Taken Type Diltiazem C.d. [Cardizem Cd] 360 mg PO DAILY 04/18/14 04/04/19 04/03/19 History Diphenhydramine HCl [Sleep Aid] 25 mg PO QHS 09/24/16 04/04/19 04/03/19 History Pitavastatin Calcium [Livalo] 1 mg PO DAILY 08/22/17 04/04/19 04/03/19 History Bupropion X.l. [Wellbutrin Xl] 150 mg PO DAILY 03/09/19 04/04/19 04/04/19 History Clonazepam 0.5 mg PO BID 03/09/19 04/04/19 04/04/19 History Hydralazine [Apresoline] 75 mg PO TID 03/09/19 04/04/19 04/04/19 History Omeprazole [Prilosec] 20 mg PO BID 03/09/19 04/04/19 04/04/19 History Hydrocodone/Acetaminophen [[place] 1 ea PO TID PRN PRN 04/04/19 04/04/19 04/04/19 04:00 History 5-325 Tablet] - History of Present Illness-Neuro Nature of Presenting Problem: has had H/A behing R eye, L extremity weakness, LE tingling since 399. Has some blurred vision Has had tingling Mouth, tongue briefly on Tues, recurred again today. Had conhusion briefly sev days ago, as well as trouble walking. This gentleman had surgery recently, had a post-op ileus/urinary retention. These have resolved, still has occ diarrhea. no fever Headache Location: reports: other (R retro-orbital) Severity: reports: moderate Timing: reports: still present Any recent trauma/injury?: reports: none Cognitive Baseline: alert, oriented x3 Gait Baseline: walks without assistance Similar Symptoms Previously?: No Recently seen or treated by another doctor?: Yes Review of Systems - Adult - REVIEW OF SYSTEMS - ADULT Constitutional: reports: no symptoms reported Eyes: reports: see HPI Ears, Nose, Mouth & Throat: reports: no symptoms reported Cardiovascular: reports: no symptoms reported Respiratory: reports: no symptoms reported Gastrointestinal: reports: nausea Genitourinary: reports: see HPI Musculoskeletal: reports: no symptoms reported Integumentary: reports: no symptoms reported Neurological: reports: see HPI Psychiatric: reports: no symptoms reported Endocrine: reports: no symptoms reported Hematologic/Lymphatic: reports: no symptoms reported Allergic/Immunologic: reports: no symptoms reported Past History - Adult - PAST MEDICAL HISTORY-ADULT Review of Records: reports: Medications Reviewed Major Childhood Illnesses: reports: denies history Cardiovascular: reports: HTN Respiratory: reports: COPD Gastrointestinal: reports: denies history Obstetrical/Gynecological: reports: denies history Genitourinary: reports: prostate cancer Musculoskeletal: reports: denies history Neurological: reports: denies history Psychiatric: reports: denies history Endocrine/Immune: reports: denies history Other Conditions: reports: denies history - PRIOR SURGERIES/PROCEDURES Surgical/Procedure History: reports: recent surgery (bowel surgery in June 2017) - IMMUNIZATION STATUS Childhood Immunizations: See Nurse Assessment Flu Vaccine: See Nurse Assessment - FAMILY HISTORY Family History: reviewed, not pertinent - SOCIAL HISTORY Smoking: cigarettes Physical Exam- Neurological - Physical Exam-Neuro Initial Vital Signs Reviewed: Yes General Appearance: appears well, alert, no apparent distress Eye Exam: bilateral eye: normal inspection, PERRL, EOMI HENMT: normocephalic/atraumatic, moist mucous membranes, normal ENT inspection, pharynx normal Head Injury: no evidence of injury Neck: non-tender, full range of motion, supple, normal inspection Respiratory: lungs clear, normal breath sounds, no pleuratic chest pain, no respiratory distress, no accessory muscle use Cardiovascular: regular rate, rhythm, no edema, no gallop, no murmur Abdominal Exam: non tender, soft Extremity: normal range of motion, non-tender marketing account executive Exam: normal hearing, normal speech, PERRL, other (Sl droop L face, forehead included, O/W, marketing account executive intact) Coordination/Gait: ABN nose to finger (L) Motor/Sensory: no motor deficit, no sensory deficit, no pronator drift Neurologic: grossly normal Integumentary: normal color, normal turgor, warm/dry Psych/Mental Status: normal mood/affect, normal thought content, normal thought process, oriented x 3 - [place]ow Coma Scale Best Eye Response: (4) open spontaneously Best Verbal Response: (5) oriented Best Motor Response: (6) obeys commands Progress - PLAN OF CARE/RESULTS Progress/Plan/Lab Results: Vital Signs - 8 hr 04/04/19 10:19 Temperature 98.3 F Pulse Rate 108 H Respiratory Rate 19 Blood Pressure 177/94 O2 Sat by Pulse Oximetry 99 Laboratory Results - last 24 hr 04/04/19 04/04/19 04/04/19 10:23 11:47 11:47 WBC 7.93 RBC 3.65 L Hgb 10.8 L Hct 34.0 L MCV 93.2 MCH 29.6 MCHC 31.8 L RDW Std Deviation 13.1 Plt Count 534 H MPV 8.8 Immature Gran % (Auto) 0.6 H Neut % (Auto) 68.5 Lymph % (Auto) 21.1 [place] % (Auto) 7.8 Eos % (Auto) 1.4 Baso % (Auto) 0.6 Immature Gran # (Auto) 0.05 H Neut # (Auto) 5.43 Lymph # (Auto) 1.67 [place] # (Auto) 0.62 H Eos # (Auto) 0.11 Baso # (Auto) 0.05 PT 13.7 INR 1.03 PTT (Actin FS) 32.3 POC Glucose 106 H Troponin T Urine Source Urine Color Urine Turbidity Urine pH Ur Specific [place] Urine Protein Ur Glucose (Stick) Ur Ketones (Stick) Urine Blood Urine Nitrite Urine Bilirubin Urobilinogen Dipstick Urine Leukocytes Urine WBC (Auto) Urine RBC (Auto) U Epithel Cells (Auto) Urine Bacteria (Auto) 04/04/19 04/04/19 11:47 12:05 WBC RBC Hgb Hct MCV MCH MCHC RDW Std Deviation Plt Count MPV Immature Gran % (Auto) Neut % (Auto) Lymph % (Auto) [place] % (Auto) Eos % (Auto) Baso % (Auto) Immature Gran # (Auto) Neut # (Auto) Lymph # (Auto) [place] # (Auto) Eos # (Auto) Baso # (Auto) PT INR PTT (Actin FS) POC Glucose Troponin T < 0.010 Urine Source CLEAN CATCH Urine Color YELLOW Urine Turbidity CLEAR Urine pH 6.0 Ur Specific [place] 1.015 Urine Protein TRACE A Ur Glucose (Stick) NEGATIVE Ur Ketones (Stick) NEGATIVE Urine Blood NEGATIVE Urine Nitrite NEGATIVE Urine Bilirubin NEGATIVE Urobilinogen Dipstick NORMAL Urine Leukocytes MODERATE A Urine WBC (Auto) 20-40 A Urine RBC (Auto) <10 U Epithel Cells (Auto) <10 Urine Bacteria (Auto) NEGATIVE Orders Category Date Time Status Cardiac Monitoring DIRECTED Care 04/04/19 11:13 Active Finger Stick Blood Sugar (ED) DIRECTED Care 04/04/19 11:13 Completed Misc. NRSG Communication Order DIRECTED Care 04/04/19 11:13 Active Saline Loc NOW Care 04/04/19 11:13 Active CHEST-PORTABLE [RAD] Stat Exams 04/04/19 11:[address] HEAD W/O CONTRAST [CT] Stat Exams 04/04/19 10:26 Completed CBC WITH ELECTRONIC DIFF [HEME] Stat Lab 04/04/19 11:47 Completed COMPREHENSIVE METABOLIC PANEL [CHEM] Stat Lab 04/04/19 11:47 Received PROTIME WITH INR [COAG] Stat Lab 04/04/19 11:47 Completed PTT [COAG] Stat Lab 04/04/19 11:47 Completed TROPONIN T Stat Lab 04/04/19 11:47 Completed URINALYSIS W/POSS RFLX CULT [URINALYSIS] Stat Lab 04/04/19 12:05 Completed URINE DRUG SCREEN Stat Lab 04/04/19 12:05 Received 0.9% Sodium Chloride Inj [Ns] 1,000 ml Med 04/04/19 11:13 Active IV 150 mls/hr Aspirin Med 04/04/19 12:33 Once 81 mg PO NOW ONE Clopidogrel [Plavix] Med 04/04/19 12:33 Once 300 mg PO NOW ONE Nicotine Patch [Nicoderm Patch] Med 04/04/19 12:33 Once 21 mg TD NOW ONE EKG [EKG] Stat Ther 04/04/19 10:29 Ordered EKG [EKG] Stat Ther 04/04/19 11:13 Ordered Result Diagrams: 04/04/19 11:47 - CT/MRI 1 CT Study: Head Impression: Abnormal (Acute R COMMUNICATIONS DIRECTOR infarct, involving occipital and parietal) - CONSULTS/PCP/HOSPITALIST Notification #1 *Consult/PCP/Hospitalist*: Kenan Time Discussed: 12:15 Reason/Comments: no TPA, restart Plavix, cont ASA #2 Consult: Gregory Time Discussed: 12:35 Consult Disposition: Will see in ED, Admit Departure - Departure Date of Disposition Decision: 04/04/19 Time of Disposition Decision: 12:34 DIAGNOSIS: CVA (cerebral vascular accident) Qualifiers: CVA mechanism: occlusion Precerebral and cerebral artery: posterior cerebral artery Disposition: ADMITTED INPATIENT 09 Certified Medical Emergency: Emergent Condition: Good Referrals and Follow-Ups: Hamilton So MD [Primary Care Provider] - - Critical Care Note This patient required my direct & personal management of CC.: No Attestation - Physician/ OBDULIO Attestation Patient care was provided by Advanced Practice Provider:: No The physician spent face to face time with patient:: Yes Advanced Practice Provider documentation review:: Supervising physician onsite and consulted in the evaluation and care of this patient. The physician did have a face to face encounter with the patient. - NIH Stroke Scale Level of Consciousness: 0-Alert LOC Questions (ask month and age): 0-Answers Both Correctly LOC Commands (ask to open & close eyes;make a fist, let go): 0-Obeys Both Correctly Best Gaze (horizontal eye movement): 0-Normal Visual (use finger movement, counting or visual threat): 0-No Visual Loss Facial Palsy (show teeth or raise eyebrows & close eyes tght: 1-Minor Paralysis Motor Function-left arm: 0-Normal Motor Function-right arm: 0-Normal Motor Function-left le-Normal Motor Function-right le-Normal Limb Ataxia(kfofna-kzso-lmejzg, or heel to [place]): 2-Present in two limbs Sensory(pin prick to face,arms,trunk,legs-compare side/side): 0-No Ataxia Best Language(name item/read sentence.Ex-Down to Earth): 0-No Aphasia Dysarthria(Pt read words or say words Ex.Mama,Tip-Top,Thanks: 0-Normal Articulation Extinction and Inattention: 0-Normal NIH Total Score: 3 Stroke tPA Guidelines - Inclusion Criteria for IV tPA 18 years old or older: Yes Ischemic stroke with measurable deficit: Yes Onset <3 hours ago *OR* 3-4.5 hours ago: No - Exclusion Criteria for IV tPA Evidence of intracranial hemorrhage on CT: No Presentation suggest SAH: No CT reveals defined area of hypodensity: No Evidence of AVM, neoplasm, aneurysm: No Seizure at stroke onset: No Active internal bleeding or acute trauma: No Platelet Count Less Than 100,000: No Heparin Within Last 48 HRS (PTT >Lab normal limits): No INR > 1.7 (warfarin use): No Use IIB/IIIA inhibitors within 24 hours: No Serious Head Trauma Within Last 3 Months: No Arterial Puncture Within Last 7 Days: No Lumbar Puncture Within Last 7 Days: No Repeated systolic Blood Pressure >185 or Diastolic >110: No - Additional Exclusion Criteria for IV tPA Currently on Coumadin: No Patient older than 80: No Prior stroke and diabetes: No Baseline NIHSS score > 25: No - Relative Contraindications to IV tPA CT reveals extensive area of infarct (>1/3 MCA territory): No Minor or rapidly improving stroke symptoms: No Major Surgery or Serious Trauma In Previous 14 Days: No AMI within 3 months: No Gastrointestinal or Urinary Tract hemorrhage in Past 21 Days: No Post - AMI pericarditis: No Blood Glucose Less Than 50 mg/dl or Greater Than 400 mg/dl: No
--- NOTE | 2019-04-04 11:20 | Diag Imaging Result Doc PS360 ---
EXAM: CT HEAD W/O CONTRAST INDICATION: stroke like sx TECHNIQUE: This exam was performed using automated exposure control, adjustment of mA or kV according to patient size, and/or use of iterative reconstruction technique. COMPARISON: 06/12/2016 FINDINGS: There is low-attenuation and loss of king-white differentiation in the medial aspect of the right parietal lobe and right occipital lobe indicating an acute infarct. It appears to be in the right SUPPLIER ENGINEER distribution. There are a couple of lacunar infarcts involving the periventricular white matter of the left frontal lobe that were not present on the previous study. However, these have a more chronic appearance. There is no discrete intracranial mass, mass effect, or intracranial hemorrhage. The surrounding soft tissues and bony structures are essentially unremarkable. IMPRESSION: 1.Right SUPPLIER ENGINEER distribution acute infarct as described. 2.Two lacunar infarcts in the periventricular white matter of the left frontal lobe that were not present in 2016. However, these have a more chronic appearance. The findings were discussed with Mert Moreau MD at 04/04/2019 11:17 AM and was acknowledged. Electronically signed by Dmitry Sanchez 04/04/2019 11:18 AM
[2019-04-04 12:05] LABS: BASO# 0.05 X1000 (0.0-0.2); BASO% 0.6 % (0.0-0.8); EOS# 0.11 X1000 (0.0-0.7); EOS% 1.4 % (0.0-10.0); HEMOGLOBIN 10.8 g/dL (14.0-18.0); IMM GRAN# 0.05 X1000 (0.0-0.04); IMM GRAN% 0.6 % (0.0-0.5); LYMPH# 1.67 X1000 (1.2-3.4); LYMPH% 21.1 % (20.5-51.1); MCH 29.6 PG (27-31); MCHC 31.8 g/dL (33-37); MCV 93.2 FL (81-99); MONO# 0.62 X1000 (0.11-0.59); MONO% 7.8 % (1.7-9.3); MPV 8.8 FL (7.4-10.4); NEUT# 5.43 X1000 (1.4-6.5); NEUT% 68.5 % (42.2-75.2); PLT 534 X1000 (130-400); RBC 3.65 XMIL (4.7-6.1); RDW 13.1 % (11.5-14.5); WBC 7.93 X1000 (4.8-10.8)
[2019-04-04 12:15] LABS: URINE SOURCE CLEAN CATCH
--- NOTE | 2019-04-04 12:15 | ED EKG INTERP ---
This chart was entered by Sarah Dubois Scribe, acting as scribe for Mert Moreau MD. EKG Interpretation - EKG Time of EKG reading by physician:: 10:36 EKG Read and Signed by:: Mert Moreau EKG Interpretation (*Must complete 3 of following elements*): Abnormal Rate: 96 Rhythm: normal sinus rhythm [place]: left Comments: inferior infarct age undetermined Attestation - Physician/ OBDULIO Attestation Patient care was provided by Advanced Practice Provider:: No The physician spent face to face time with patient:: Yes Advanced Practice Provider documentation review:: Supervising physician onsite and consulted in the evaluation and care of this patient. The physician did have a face to face encounter with the patient. This chart was documented by the indicated scribe, (Sarah Dubois, [place]) and accurately reflects the services I performed and decisions made by me, Mert Moreau MD, as attested by the provider's signature.
[2019-04-04 12:17] LABS: BILIRUBIN URINE NEGATIVE (NEGATIVE); BLOOD URINE NEGATIVE (NEGATIVE); COLOR YELLOW; GLUCOSE URINE NEGATIVE (NEGATIVE); KETONE URINE NEGATIVE (NEGATIVE); LEUKOCYTES URINE MODERATE (NEGATIVE); NITRITE URINE NEGATIVE (NEGATIVE); PROTEIN URINE TRACE mg/dL (NEGATIVE); SP GRAVITY URINE 1.015; TURBIDITY URINE CLEAR (CLEAR); UROBILINOGEN URINE NORMAL (NORMAL)
[2019-04-04 12:19] LABS: UR EPITHELIAL CELLS <10 /HPF (<10); URINE BACTERIA NEGATIVE /HPF; URINE RBC <10 /HPF (<10); URINE WBC 20-40 /HPF (<10)
[2019-04-04 12:20] LABS: PROTIME 13.7 Seconds (11.0-16.0)
[2019-04-04 12:21] LABS: INR 1.03; PTT 32.3 Seconds (22.3-41.8)
[2019-04-04] MEDS ORDERED: PLAVIX PO ONE (12:33)
[2019-04-04] MEDS ORDERED: NICODERM PATCH TD ONE (12:33)
[2019-04-04] MEDS ORDERED: ASPIRIN PO ONE (12:33)
[2019-04-04 12:36] LABS: ALB/GLOB RATIO 1.4; ALBUMIN 3.5 g/dL (3.5-5.0); CALCIUM 8.6 mg/dL (8.8-10.2); CREATININE 1.5 mg/dL (0.7-1.2); POTASSIUM 5.1 mmol/L (3.5-5.1); TOTAL BILIRUBIN 0.17 mg/dL (0.20-1.00)
[2019-04-04 12:40] LABS: UR AMPHETAMINES QUAL NONE DETECTED (NONE DETECT); UR BARBITUATES QUAL NONE DETECTED (NONE DETECT); UR BENZODIAZEPIN QUAL NONE DETECTED (NONE DETECT); UR CANNABINOIDS QUAL NONE DETECTED (NONE DETECT); UR COCAINE QUAL NONE DETECTED (NONE DETECT); UR METHADONE QUAL NONE DETECTED (NONE DETECT); UR OPIATES QUAL PRESUMPTIVE POSITIVE (NONE DETECT); UR OXYCODONE QUAL NONE DETECTED (NONE DETECT); UR PCP QUAL NONE DETECTED (NONE DETECT)
--- NOTE | 2019-04-04 13:03 | Diag Imaging Result Doc PS360 ---
EXAM: CHEST-PORTABLE INDICATION: stroke like symptoms TECHNIQUE: One view COMPARISON: 03/18/2019 FINDINGS: The lungs are grossly clear. There is no discrete pleural fluid collection or pneumothorax. The cardiomediastinal silhouette and central vasculature are grossly unremarkable. IMPRESSION: No evidence of acute pathology by plain radiograph. Electronically signed by Dmitry Sanchez 04/04/2019 1:00 PM
--- NOTE | 2019-04-04 15:19 | HISTORY AND PHYSICAL ---
PRIMARY CARE PHYSICIAN: Dr. Hamilton So. CHIEF COMPLAINT: Of a headache, left-sided extremity weakness, left upper extremity tingling, blurred vision, trouble walking that began initially on Friday and has intermittently gotten worse with the worst being around 4 a.m. this morning. HISTORY OF PRESENTING ILLNESS: This is a 63-year-old male who presents to [facility] stating that he had a headache, blurred vision, trouble walking with left upper and lower extremity weakness, left upper extremity tingling, but states that these symptoms have resolved at this time. We did a CT of the head that showed an impression of a right LINE WELDER distribution acute infarct and 2 lacunar infarcts in the periventricular white matter of the left frontal lobe that were not present in 2005 however these have a more chronic appearance. ER physician spoke with patient's neurologist Dr. Grayson who states that he had been taken off of his aspirin, Plavix for a bowel surgery, bladder surgery that he had in March 04March some time but that he needed to be restarted on his Plavix and aspirin so he will be admitted for further evaluation and treatment. Discussed at length with this patient about smoking cessation per attending. He is a pack a day smoker and has done so for 50 years, patient verbalized understanding. PAST MEDICAL HISTORY: Hypertension, COPD, prostate cancer, CVA, pancreatitis, had an [place] x2. PAST SURGICAL HISTORY: Of a bowel, bladder surgery, heart stents x6 and a right rotator cuff. FAMILY HISTORY: Reviewed and noncontributory. SOCIAL HISTORY: Currently lives with family, is a pack a day smoker and has done so for the past 50 years. Denies any alcohol or illicit drug use. ALLERGIES: Keflex, Percodan, penicillin and erythromycin. HOME MEDICATIONS: We will obtain a current list and review, restart and reconcile as appropriate. We will hold antihypertensives at this time. LABORATORY DATA: Showed a white blood cell count of 7.93, hemoglobin 10.8, hematocrit 34, platelets 534,000. PT and INR of 13.7 and 1.03. Sodium 136, potassium 5.1, chloride 104, CO2 18, BUN of 17, creatinine 1.5 and this is actually an improvement from in March when it was 1.9, glucose 109. Troponin was negative at less than 0.010. Urinalysis was negative. Urine drug screen was presumptive positive for opiates. Head CT showed a right LINE WELDER distribution acute infarct and 2 lacunar infarcts in the periventricular white matter of the left frontal lobe that were not present in 2016, however these have a more chronic appearance. Chest x-ray showed no evidence of acute pathology by plain radiograph. EKG showed normal sinus rhythm. REVIEW OF SYSTEMS: He was positive for a headache, blurred vision, difficulty walking with left upper and lower extremity weakness and tingling. Denied any chest pain, coughing, shortness of breath, denied any abdominal pain, constipation, diarrhea, burning or hurting with urination. PHYSICAL EXAMINATION: On arrival had a temperature of 98.3 degrees, a pulse of 108, respirations 19, blood pressure 177/94, saturating 99% on room air. GENERAL: This is a 63-year-old male who is lying in the bed and answers questions appropriately. HEENT: Normocephalic, atraumatic. Normal ENT inspection. Oropharynx and nares are clear. Pupils are equal, round, reactive to light, accommodation. Extraocular movements are intact. NECK: Normal inspection, normal range of motion. LUNGS: Clear to auscultation bilaterally with equal lung expansion and chest wall movement. HEART: With regular rate and rhythm. No murmurs, rubs, or gallops. ABDOMEN: Soft, nontender, nondistended. Bowel sounds are present x4 quadrants. MUSCULOSKELETAL: He had 5/5 strength x4 extremities. NEUROLOGICAL: The cranial nerves 2-12 appear grossly intact. ASSESSMENT: 1. An acute cerebrovascular accident. 2. Hypertension. 3. Coronary artery disease history of aware. 4. Tobacco abuse. PLAN: He will be admitted to the medical unit, placed on telemetry. We will check carotid Dopplers and an echocardiogram. We will do an MRI of his brain with and without contrast. We will place him on a healthy heart diet. We will place him back on Plavix 75 mg p.o. daily and aspirin 81 mg p.o. daily. Continue his cholesterol medication, place him on normal saline at 125 mL an hour. Again we did discuss smoking cessation at length with this patient who verbalized understanding. We will place him on nicotine patch 21 mg transdermally daily. We are consulting Neurology so further orders after seen by dairy feed sales consultant and attending. Patient seen and examined by me face to face, all the laboratory, vitals signs and images were reviewed, patient presented to the emergency department with some upper extremity weakness - tingling sensation and blurry vision, CT of the head that showed an impression of a right LINE WELDER distribution acute infarct and 2 lacunar infarcts in the periventricular white matter of the left frontal lobe that were not present before, so likely he has an stroke, he will be placed on antiplatelet medications, we will allow permissive hypertension, MRI, neurology consult, I agree with the rest of the WEB SITE DEVELOPER's assessment and plan, Radhames Zuniga MD Dictated by MARGARITA Bishop for Radhames Klein MD cc: MD Radhmaes Oconnell MD MTDD
[2019-04-04] MEDS ORDERED: ZOFRAN IV PRN (15:42)
[2019-04-04] MEDS ORDERED: TYLENOL PO PRN (15:42)
[2019-04-04] MEDS: PLAVIX PO SCH ×2 (15:57→16:00)
--- NOTE | 2019-04-04 17:42 | EKG Report ---
Test Performed on : 04/04/2019 10:30:14 AM Test Reason : STROKE LIKE Blood Pressure : / mmHG Vent. Rate : 096 BPM Atrial Rate : 096 BPM P-R Int : 138 ms QRS Dur : 082 ms QT Int : 374 ms P-R-T Axes : 024 -43 032 degrees QTc Int : 472 ms Normal sinus rhythm. Left axis deviation Inferior infarct (cited on or before 23-AUG-2017) Abnormal ECG When compared with ECG of 19-MAR-2019 06:25, QRS duration has decreased Questionable change in initial forces of Inferior leads T wave inversion no longer evident in Anterior leads Unconfirmed Result
[2019-04-04] MEDS ORDERED: ULTRAM PO ONE (18:51)
[2019-04-04] MEDS: BENADRYL PO SCH (20:43)
[2019-04-04] MEDS: PRILOSEC PO SCH (20:43)
[2019-04-04] MEDS: KLONOPIN PO SCH (20:43)
[2019-04-04] MEDS: VANCOCIN PO SCH (20:43)
[2019-04-05] MEDS: VANCOCIN PO SCH ×4 (01:53→20:45)
[2019-04-05 06:18] LABS: BASO% 0.6 % (0.0-0.8); EOS% 2.5 % (0.0-10.0); HEMATOCRIT 31.5 % (42.0-52.0); HEMOGLOBIN 9.9 g/dL (14.0-18.0); IMM GRAN% 0.3 % (0.0-0.5); LYMPH# 2.07 X1000 (1.2-3.4); LYMPH% 28.7 % (20.5-51.1); MCH 29.3 PG (27-31); MCHC 31.4 g/dL (33-37); MCV 93.2 FL (81-99); MONO# 0.69 X1000 (0.11-0.59); MONO% 9.6 % (1.7-9.3); NEUT# 4.21 X1000 (1.4-6.5); NEUT% 58.3 % (42.2-75.2); PLT 516 X1000 (130-400); RBC 3.38 XMIL (4.7-6.1); WBC 7.21 X1000 (4.8-10.8)
[2019-04-05 06:19] LABS: BASO# 0.04 X1000 (0.0-0.2); EOS# 0.18 X1000 (0.0-0.7); IMM GRAN# 0.02 X1000 (0.0-0.04)
[2019-04-05 06:50] LABS: AGAP 12; ALB/GLOB RATIO 1.1; ALKALINE PHOSPHATASE 108 U/L (32-122); BUN 13 mg/dL (8-22); CALCIUM 8.5 mg/dL (8.8-10.2); CHLORIDE 109 mmol/L (98-107); CHOLESTEROL 116 mg/dL (0-200); COSMO 277; CREATININE 1.4 mg/dL (0.7-1.2); ESTIMATED GFR 51; GLUCOSE 83 mg/dL (70-104); GOT 16 U/L (10-34); GPT 12 U/L (10-44); HDL 36 mg/dL (35-55); LDL 36 mg/dL; MAGNESIUM 1.3 mg/dL (1.5-2.7); PHOSPHORUS 2.3 mg/dL (2.7-4.5); POTASSIUM 3.7 mmol/L (3.5-5.1); SODIUM 139 mmol/L (136-145); TCO2 18 mmol/L (25-35); TOTAL BILIRUBIN 0.23 mg/dL (0.20-1.00); TOTAL PROTEIN 5.7 g/dL (6.3-8.3); TRIGLYCERIDES 222 mg/dL (39-160); VLDL 44 mg/dL
[2019-04-05] MEDS ORDERED: MAGNESIUM SULFATE 2 GM/S.W.I. 2 GM/50 ML IVPB IV ONE (07:20)
--- NOTE | 2019-04-05 08:00 | PROGRESS NOTE ---
DATE: 04/05/2019 SUBJECTIVE: The patient is resting comfortably in bed. No issues during the night. Complaining of some tingling sensation on the left hand, but no focal weakness. Pending MRI, carotic ultrasound, and Neurology evaluation. OBJECTIVE: Vital Signs: Temperature 97.7 degrees, pulse 94, respiratory rate 19, blood pressure 151/87, oxygen saturation 97% on room air. HEENT: Head normocephalic. No trauma. PERRLA. Neck: Supple. No JVD. No masses. Central trachea. Chest: Clear to auscultation. No wheezing. No rales. Abdomen: Soft, nontender, nondistended. No hepatosplenomegaly. Extremities: No edema, no clubbing, no cyanosis. Decreased muscle mass. Neurological: The patient is alert. He is oriented x3. I do not see any focal deficits. He is complaining of left hand tingling sensation. LABORATORY DATA: WBC 7.2, hemoglobin 9.9, hematocrit 31.5, platelets 93.2. Sodium 139, potassium 3.7, chloride 109, bicarbonate 18, BUN 13, creatinine 1.4, glucose 84, calcium 8.5. Magnesium 1.3. ASSESSMENT AND PLAN: 1. Possible cerebrovascular accident, pending MRI. We do have a head CT scan that showed right posterior cerebral artery distribution acute infarct, two lacunar infarcts in the periventricular white matter of the left frontal lobe that were not present in 2016, but have more chronic appearance. He has been placed on statins today. I will start this patient on his home blood pressure medication, aspirin. Pending MRI, carotid ultrasound, and Neurology evaluation. I requested physical therapy. 2. Chronic kidney disease. This is his baseline. Continue with the same management. 3. Hypertension. I have restarted his blood pressure medication. 4. History of coronary artery disease with multiple stents x6. Aware. No chest pain at this moment. 5. Hypomagnesemia. I will replace the magnesium. 6. Tobacco abuse. This patient has been highly advised against tobacco use. I will continue with daily cessation education. Time discussing and educating this patient against tobacco use was about 3 to 5 minutes. cc: Radhames Klein MD
[2019-04-05] MEDS: CARDIZEM CD PO SCH (09:52)
[2019-04-05] MEDS: ASPIRIN PO SCH (09:53)
[2019-04-05] MEDS: APRESOLINE PO SCH ×3 (09:53→17:17)
[2019-04-05] MEDS: PLAVIX PO SCH (09:53)
[2019-04-05] MEDS: PRILOSEC PO SCH ×2 (09:54→20:46)
[2019-04-05] MEDS: WELLBUTRIN XL PO SCH (09:54)
[2019-04-05] MEDS: KLONOPIN PO SCH ×2 (10:08→20:46)
--- NOTE | 2019-04-05 15:05 | ECHO REPORT ---
ORDER DATE: 04/04/2019 INDICATION: COPD, coronary disease. FINDINGS: 1. Right atrium appears normal in size. 2. Mild tricuspid regurgitation. RV systolic pressure 26. 3. Normal RV size and systolic function. 4. Trace pulmonic insufficiency. 5. Normal left atrial size with a volume index of 21. 6. No mitral valve prolapse. Mild mitral regurgitation. No mitral stenosis. 7. Left ventricle is somewhat dilated with a dimension of 5.8 cm. Normal LV size with a posterior and interventricular septal wall thickness of 0.9 cm. Normal LV systolic function with estimated EF of 55%. There is some inferior basilar hypokinesis. 8. Aortic valve opens well. No evidence of stenosis or insufficiency. 9. Aorta appears normal in visualized segments. 10. No pericardial effusion seen. cc: MD Jannette Milian CRNP
[2019-04-05] MEDS ORDERED: ULTRAM PO PRN (18:42)
[2019-04-05] MEDS: BENADRYL PO SCH (20:45)
[2019-04-05] MEDS: NICODERM PATCH TD SCH (20:46)
[2019-04-05] MEDS: LIVALO PO SCH (20:46)
[2019-04-06] MEDS: VANCOCIN PO SCH ×4 (02:06→20:27)
[2019-04-06 08:10] LABS: CALCIUM 8.6 mg/dL (8.8-10.2); CREATININE 1.4 mg/dL (0.7-1.2); POTASSIUM 4.4 mmol/L (3.5-5.1)
--- NOTE | 2019-04-06 09:50 | CONSULTATION ---
DATE OF CONSULTATION: 04/06/2019 HISTORY: Mr. Rg reports noticing that he could not use his left leg well and he could not stand without assistance about 48 hours ago. He noticed this problem on waking. There was some numbness in the left arm. He had some tingling over the left side of the face. Speech was not slurred. There was no trouble chewing or swallowing. He did not notice any new vision disturbance. He had reported significant right retro-orbital headache over a period of several days prior to this neurologic deficit. He rested, attempt to stand several hours later and found he continued to be weak on the right side. He presented to the hospital. Several hours later, he noticed he was significantly improved. He believes he is completely back to normal today, except for minimal persistent left lip tingling. He has continued smoking cigarettes. He has hypertension, dyslipidemia. He is not aware of any prior clinical stroke but he was told after brain imaging a few years ago that there was evidence of prior stroke. 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 He has not had any other dysphasia. He has not had prior hemiparesis. DATA: Workup here includes noncontrast CT showing right-sided lucency which appears to be old. Brain MRI is scheduled. MEDICATIONS: He was taking aspirin and clopidogrel regularly but stopped those prior to recent surgery. He had not made any other recent medication changes. PHYSICAL EXAMINATION: On exam, Mr. Rg is awake, alert, attentive, appropriate. I observed him chewing and swallowing without difficulty. Speech is not dysarthric. Language function is intact on brief bedside testing. Memory is good. Head and neck are unremarkable. Visual owens are full on the right and absent on the left. Extraocular movements are full. Facial motility is good. Gag is intact. Tongue is midline. He can hear. He has some guarding at the right shoulder. Left shoulder shrug is good. He has good power in the arms and legs. Limb tone is symmetric. He did well on finger- to-nose testing bilaterally. He reports minimally and inconsistently diminished pinprick appreciation over the dorsum of the left hand compared to the right. Otherwise, pinprick and light touch are intact over the limbs. Proprioception is good at the left index finger MCP joint and at the left great toe MTP joint. I did not test his gait. Plantar response is silent bilaterally. Reflexes 1+ at the ankles and wrists symmetrically. IMPRESSION: History of left hemiparesis with left hemianopia the only consistent clinical finding now . I wonder if the left hemianopia might be old and chronically not recognized by the patient. The duration of deficit 2 days ago is much longer than typically associated with transient ischemic attack. Brain MRI will be helpful. Further plans will depend on the vascular workup including carotid ultrasound as ordered. For now, I would continue cautious treatment of blood pressure, aggressive management of blood sugar and lipids, follow clinically. I encouraged him to quit smoking cigarettes. Thanks for asking neurology to see Mr. Rg. cc: Romario Shukla III, MD MTDD
--- NOTE | 2019-04-06 09:53 | Diag Imaging Result Doc PS360 ---
MRI BRAIN W/WO CONTRAST - 04/05/2019 INDICATION: Acute CVA COMPARISON: Head CT 04/04/2019 FINDINGS: There are large areas of restricted diffusion in the posterior right occipital lobe as well as the posterior and midportion of the right thalamus. There is cortical multifocal T1 hyperintensity in the region of the occipital lobe indicating laminar cortical necrosis. No intracranial mass or hemorrhage. No abnormal contrast enhancement. No midline shift or significant mass effect. There are some old periventricular lacunae, and mild periventricular white matter chronic microvascular disease. IMPRESSION: Large recent stroke affecting the posterior right occipital lobe and right thalamus. No complication. Electronically signed by Russ Franco 04/06/2019 9:51 AM
[2019-04-06] MEDS: KLONOPIN PO SCH ×2 (10:17→20:27)
[2019-04-06] MEDS: PRILOSEC PO SCH ×2 (10:17→20:27)
[2019-04-06] MEDS: APRESOLINE PO SCH ×3 (10:17→17:42)
[2019-04-06] MEDS: CARDIZEM CD PO SCH (10:18)
[2019-04-06] MEDS: PLAVIX PO SCH (10:19)
[2019-04-06] MEDS: ASPIRIN PO SCH (10:19)
[2019-04-06] MEDS: WELLBUTRIN XL PO SCH (10:19)
[2019-04-06] MEDS: NICODERM PATCH TD SCH (10:24)
--- NOTE | 2019-04-06 13:33 | PROGRESS NOTE ---
DATE: 04/06/2019 SUBJECTIVE: Patient is resting comfortably in bed. No issues during the night. He has been complaining on-and-off of headache. No focal weakness. MRI showed a large recent stroke in the right occipital lobe and thalamus. Pending carotid ultrasound results and final recommendations from the neurology department. OBJECTIVE: Vital Signs: Temperature 98.1 degrees, pulse 95, respiratory rate 19, blood pressure 143/71. Oxygen saturation 94% on room air. HEENT: Head normocephalic. No trauma. PERRLA. Neck: Supple. No JVD. No masses. Central trachea. Chest: Clear to auscultation. No wheezing. No rales. Abdomen: Soft, nontender, nondistended. No hepatosplenomegaly. Extremities: No edema. No clubbing. No cyanosis. Decreased muscle mass. Neurological: The patient is alert. He is oriented x3. I do not see any motor focal deficits. LABORATORY DATA: Sodium 139, potassium 4.4, chloride 107, bicarbonate 22, BUN 12, creatinine 1.4, glucose 94, calcium 8.6. ASSESSMENT AND PLAN: 1. Recent large stroke in the right occipital lobe and thalamus, Neurology Department on board. We will continue controlling his blood pressure pending culture a carotic ultrasound. We have also a positive urine culture that showed gram-positive cocci. I will wait for final results. 2. Chronic kidney disease. This is his baseline. Continue with same management. 3. Hypertension. I have restarted his blood pressure medication. 4. History of coronary artery disease with multiple stents, x6. Aware. No chest pain at this moment. 5. Hypomagnesemia. 6. Tobacco abuse. This patient has been highly advised against tobacco use. I will continue with daily cessation education. cc: Radhames Klein MD
[2019-04-06] MEDS: LIVALO PO SCH (20:27)
[2019-04-06] MEDS: BENADRYL PO SCH (20:27)
[2019-04-07] MEDS: VANCOCIN PO SCH ×2 (02:40→08:21)
[2019-04-07 07:52] VITALS: BP 151/70
[2019-04-07] MEDS: ASPIRIN PO SCH (08:21)
[2019-04-07] MEDS: PRILOSEC PO SCH (08:21)
[2019-04-07] MEDS: WELLBUTRIN XL PO SCH (08:21)
[2019-04-07] MEDS: NICODERM PATCH TD SCH (08:21)
[2019-04-07] MEDS: PLAVIX PO SCH (08:21)
[2019-04-07] MEDS: KLONOPIN PO SCH (08:21)
[2019-04-07] MEDS: CARDIZEM CD PO SCH (08:21)
[2019-04-07] MEDS: APRESOLINE PO SCH (08:21)
--- NOTE | 2019-04-09 13:54 | DISCHARGE SUMMARY ---
ADMISSION DATE: 04/04/2019 DISCHARGE DATE: 04/07/2019 DIAGNOSES: 1. Acute CVA right occipital lobe and thalamus. 2. Chronic kidney disease. 3. Hypertension. 4. History of coronary artery disease. 5. Hypomagnesemia, resolved. 6. Tobacco abuse. CONSULTS: Dr. Romario Shukla. DIAGNOSTICS: 1. CT of the head revealed right PUBLIC POLICY COORDINATOR distribution acute infarct, 2 lacunar infarcts in the periventricular white matter of the left frontal lobe that were not present 2016. However, there is a more chronic appearance. 2. Chest x-ray revealed no evidence of acute pathology. 3. Echocardiogram revealed normal LV systolic function with an estimated EF of 55% with some inferior basilar hypokinesis. 4. MRI of the brain revealed large recent stroke affecting the posterior right occipital lobe and right thalamus. 5. Urinary tract infection. Dictated by MARGARITA Wang for Radhames Klein MD cc: MARGARITA Wang MD
--- NOTE | 2019-04-09 17:18 | HISTORY AND PHYSICAL ---
DIAGNOSES: 1. Right occipital lobe and thalamus acute cerebrovascular accident. 2. Chronic kidney disease. 3. Hypertension. 4. History of coronary artery disease status post multiple stents. 5. Hypomagnesemia. 6. Tobacco abuse. 7. Urinary tract infection with gram-positive cocci. DIAGNOSTICS: 1. CT of the head revealed right ASSISTED LIVING ASSOCIATE distribution acute infarct with 2 lacunar infarcts in the periventricular white matter of the left frontal lobe that were not present in 2016. 2. Chest x-ray revealed no evidence of acute pathology. 3. Echocardiogram, normal LV systolic function with an ejection fraction of 55% with some inferior basilar hypokinesis. CONSULTATIONS: Dr. Romario Shukla [facility] COURSE: Mr. Rg presented to the emergency room complaining of left-sided weakness with left upper extremity tingling, blurred vision and trouble walking that actually began 5 days prior to presentation to the ER. It intermittently progressed and at 4 a.m. prior to coming to the ER, he became worried and therefore he presented for evaluation. He was found to have a right ASSISTED LIVING ASSOCIATE distribution acute infarct with 2 lacunar infarcts in the periventricular white matter of the left frontal lobe that seemed to be chronic per CT read. He was evaluated by Neurology who recommended cautious blood pressure treatment, aggressive management of blood sugar and lipids and Dr. Shukla as well as the hospitalist discussed smoking cessation with the patient multiple times throughout the hospitalization. He did have some continuing tingling in his left hand, although this did improve. He was evaluated by Physical Therapy. They recommended no skilled PT intervention. During the hospitalization, we monitored electrolytes. His magnesium was 1.3. It was repleted. Blood sugars remained in the 83 to 110 range. Creatinine stayed at 1.4 and 1.5. Looking back in his chart back to looks like 2016 that appears to be his baseline. Urine culture revealed gram- positive cocci. He was discharged on oral vancomycin and we will follow up on his culture. DISCHARGE VITAL SIGNS: Blood pressure is 151/70, heart rate of 82, respirations 18, temperature is 98 degrees with room air saturations 99%. DISCHARGE PHYSICAL EXAMINATION: Cardiovascular: Regular rate and rhythm. S1 and S2 appreciated. He has no lower extremity edema with peripheral pulses palpable x4 extremities. Calves are nontender bilateral. Pulmonary: Breath sounds are clear. No increased work of breathing noted. Chest rises and falls symmetric with respiration. Gastrointestinal: Abdomen is soft, nontender, nondistended. Bowel sounds in all 4 quadrants. Neurologic: He is alert oriented x3 with cranial nerves 2-12 grossly intact. Skin is warm and dry. DISCHARGE MEDICATIONS: 1. Plavix 75 mg p.o. daily. 2. Aspirin 81 mg p.o. daily. 3. Wellbutrin XL 150 mg p.o. daily. 4. Prilosec 20 mg p.o. b.i.d. 5. Livalo 1 p.o. daily. 6. Apresoline 75 mg p.o. t.i.d. 7. Benadryl 25 mg p.o. at bedtime. 8. Cardizem CD 360 mg p.o. daily. 9. Klonopin 0.5 mg p.o. b.i.d. FOLLOWUP: 1. Dr. Hamilton So on 04/12/2019 at 9:[address] Shukla. He needs to be seen in [address] Shukla's office will call him to schedule an appointment. He was instructed to call to be seen sooner or return to the ER for any syncope, dizziness, chest pain, palpitations, any weakness, tingling, numbness or inability to move any extremities, any facial drooping, difficulty swallowing, chewing, change in vision or hearing, or for any questions or concerns that he may have. DISPOSITION: He is being discharged home in stable condition with family members. TIME SPENT: This is a greater than 30 minute discharge. Dictated by MARGARITA Wang for Radhames Klein MD cc: MARGARITA Wang MD Michael C. Donham, MD
--- NOTE | 2019-04-11 16:33 | Carotid Study ---
DATE: 04/06/2019 REFERRING PROVIDER: MARGARITA Bishop INTERPRETING PHYSICIAN: Fox Morales MD RADIOLOGY DIRECTOR: Belinda. REASON FOR STUDY: The patient has had a CVA in the posterior cerebral artery distribution on the right. FINDINGS: The carotid imaging was accomplished. There is calcific irregular plaque in both carotid bulbs. The velocities are noted. The right internal carotid ratio is 1.1, left 1.4. Percent stenosis 40% to 59% on the right and 0 to 39% on the left. There is antegrade vertebral flow bilaterally. cc: MD Jannette Camara CRNP
== END 2019-04-07 11:18 | disposition home or self-care (01) | DRG 65 ==
LOC: ED 10:14 → 1N 13:58
PROVIDERS: ATTEND Internal Medicine